=== PATIENT | male | born 1975 | race Caucasian/White ===

== ENCOUNTER 2016-05-27 15:42 | Emergency (ER) | payer MEDICAID ==
--- NOTE | 2016-05-27 16:51 | EDM.PDOC ---
ED HPI GI/ABDOMINAL - General Chief Complaint: Gastrointestinal Problem Stated Complaint: VOMITING BLOOD Time Seen by Provider: 05/27/16 16:43 Source: Reports: Patient, RN notes reviewed History Limitations: Reports: No limitations - History of Present Illness INITIAL COMMENTS - FREE TEXT/NARRATIVE: 40-year-old gentleman presents emergency department today with complaint of vomiting of blood, he had an episode similar to this when he was a child which she relates to bleeding ulcers he has had both upper and lower endoscopy in the past. For this particular meds no warning he denies any illness he had about 6 episodes of bright red blood. At this time he feels asymptomatic - Related Data Allergies/ADRs: Allergies Allergy/AdvReac Type Severity Reaction Status Date / Time No Known Allergies Allergy Verified 05/27/16 15:56 Home Meds: Home Meds Pantoprazole [Protonix] 1 tab PO DAILY 05/27/16 [History] Past Medical History Respiratory History: Reports: Asthma Gastrointestinal History: Reports: GERD, PUD Psychiatric History: Reports: Depression - Past Surgical History HEENT Surgical History: Reports: Myringotomy w tube(s) GI Surgical History: Reports: Colonoscopy, EGD Musculoskeletal Surgical History: Reports: Arthroscopic procedure Social & Family History - Tobacco Use Smoking Status *Q: Never Smoker Years of Tobacco use: 12 Packs/Tins Daily: 1 Second Hand Smoke Exposure: Yes - Alcohol Use Days Per Week of Alcohol Use: 0 - Recreational Drug Use Recreational Drug Use: Yes Drug Use in Last 12 Months: Yes Recreational Drug Type: Reports: Marijuana/Hashish Recreational Drug Use Frequency: Daily Recreational Drug Last Use: 06/11/13 ED ROS GENERAL - Review of Systems Review Of Systems: See Below Constitutional: Reports: no symptoms HEENT: Reports: No symptoms Respiratory: Reports: No Symptoms Cardiovascular: Reports: No symptoms GI/Abdominal: Reports: Hematemesis. Denies: Black stool, Bloody stool : Reports: no symptoms ED EXAM, GI/ABD - Physical Exam Exam: See Below Exam Limited By: No limitations General Appearance: alert, WD/WN, no apparent distress Eyes: bilateral: normal appearance Ears: normal external exam, normal canal, hearing grossly normal, normal TMs Nose: normal inspection, normal mucosa, no blood Throat/Mouth: Normal inspection, Normal lips, Normal teeth, Normal gums, Normal oropharynx, Normal voice, No airway compromise Head: atraumatic, normocephalic Neck: normal inspection, supple, non-tender, full range of motion Respiratory/Chest: no respiratory distress, lungs clear, normal breath sounds, no accessory muscle use Cardiovascular: regular rate, rhythm, no murmur GI/Abdominal: soft, non tender Course - Vital Signs Last Recorded V/S: Last Vital Signs Temp 98.6 F 05/27/16 15:54 Pulse 59 L 05/27/16 17:33 Resp 20 05/27/16 17:33 BP 126/71 05/27/16 17:33 Pulse Ox 96 05/27/16 17:33 - Orders/Labs/Meds Labs: Laboratory Tests 05/27/16 05/27/16 Range/Units 16:50 16:50 WBC 14.3 H (4.5-11.0) K/uL RBC 5.29 (4.30-5.90) M/uL Hgb 15.9 H (12.0-15.0) g/dL Hct 47.1 (40.0-54.0) % MCV 89 (80-98) fL MCH 30 (27-31) pg MCHC 34 (32-36) % Plt Count 256 (150-400) K/uL Neut % (Auto) 75 H (36-66) % Lymph % (Auto) 17 L (24-44) % Bartholomew % (Auto) 8 H (2-6) % Eos % (Auto) 1 L (2-4) % Baso % (Auto) 0 (0-1) % Sodium 143 (140-148) mmol/L Potassium 4.5 (3.6-5.2) mmol/L Chloride 105 (100-108) mmol/L Carbon Dioxide 28 (21-32) mmol/L Anion Gap 9.6 (5.0-14.0) mmol/L BUN 11 (7-18) mg/dL Creatinine 1.1 (0.8-1.3) mg/dL Est Cr Clr Drug Dosing 79.20 mL/min Estimated GFR (MDRD) > 60 (>60) Glucose 96 (74-106) mg/dL Calcium 8.5 (8.5-10.1) mg/dL Departure - Departure Time of Disposition: 18:27 Disposition: Home, Self-Care 01 Condition: good Clinical Impression: Hematemesis/vomiting blood Qualifiers: Nausea presence: without nausea Qualified Code(s): K92.0 - Hematemesis Forms: ED Department Discharge Additional Instructions: The outpatient surgery center will call you for an appointment time for your endoscopy tomorrow morning, please return to the emergency department with development of new symptoms - Assessment/Plan Plan: Assessment Vomiting of blood complicated patient with known history of peptic ulcer disease Plan Discussed case with Dr. Snow from surgery he is currently on Protonix now continue with Protonix the plan is to do an EGD in the morning
[2016-05-27 17:33] VITALS: BP 126/71
== END 2016-05-27 18:50 | disposition home or self-care (01) ==
LOC: JP.ED 15:42
DX: K92.0 Hematemesis (principal); J45.909 Unspecified asthma, uncomplicated; Z79.899 Other long term (current) drug therapy
CPT/HCPCS: 36415; 80048; 85025; 99284

== ENCOUNTER 2016-05-28 06:57 | Day surgery (SDC) | payer MEDICAID ==
[2016-05-28] MEDS ORDERED: Dextrose 5%-Lactated Ringers 1,000 ML IV SCH (08:00)
[2016-05-28] MEDS ORDERED: fentaNYL 100 MCG/2 ML SDV ONE (08:13)
[2016-05-28] MEDS ORDERED: Midazolam 1 MG/ML 2 ML SDV ONE (08:13)
[2016-05-28] MEDS ORDERED: Propofol 200 MG/20 ML SDV ONE (08:13)
[2016-05-28] MEDS ORDERED: Glycopyrrolate 0.2 MG/ML 2 ML SYRINGE IVPUSH ONE (08:30)
[2016-05-28 09:45] VITALS: BP 130/88
--- NOTE | 2016-05-30 08:14 | OR ---
DATE OF PROCEDURE: 05/28/2016 PREOPERATIVE DIAGNOSIS: Hematemesis. POSTOPERATIVE DIAGNOSES: 1. Hematemesis associated with active ulcerated gastroesophageal reflux disease. 2. A small amount of gastric bezoar, associated with mild antral gastritis. PROCEDURES: Esophagogastroduodenoscopy with: A. Biopsies of antrum for CLOtest. B. Biopsies of the esophagogastric junction for histologic evaluation ANESTHESIA: IV sedation. INDICATION FOR PROCEDURE: This is a 40-year-old status post an episode of hematemesis, who was seen in the emergency room yesterday. He has not had further problems since the initial episodes of hematemesis yesterday. Patient presently on Protonix 40 mg a day, is being used long-term for gastroesophageal reflux symptoms. Potential risks including bleeding and perforation were discussed, and the patient wishes to proceed with the upper GI endoscopy. DETAILS OF PROCEDURE: The patient was taken to the operating room and placed in a left lateral decubitus position. IV sedation was administered, after which the upper GI endoscope was passed orally through the length of the esophagus and the stomach with retroflexion view of the fundus, thereafter through the pyloric channel into the proximal duodenum. The findings included normal upper esophagus and esophageal body. At the EG junction, the patient had a roughly 4 cm hiatal hernia. There were active gastroesophageal reflux findings at that level with there being a small amount of blood present on initial view. Upon passing the scope, I passed the area with minimal abrasion then quite a bit more blood was then present. There was no stricturing or gross evidence of neoplasia. Within the stomach, there was a small amount of retained fluid indicative of some possible component of relatively poor gastric emptying. There was some mild redness in the prepyloric area. Otherwise, the remainder of the stomach and duodenal exams were unremarkable. At this point, biopsies were obtained from the antrum and sent for CLOtest for H. pylori. Multiple biopsies were obtained from the esophagogastric junction and sent for histologic evaluation. Minimal bleeding from the biopsy sites was seen and the procedure concluded. The patient was taken to the recovery room in satisfactory condition. At this point, the patient would appear to be failing medical management for gastric reflux disease. We will continue the present medical management and see him back next week for recheck to discuss treatment options. Niall Snow MD /[id number]
== END 2016-05-28 09:46 | disposition home or self-care (01) ==
LOC: JP.SDS 06:57
PROVIDERS: ATTEND Surgery
DX: K22.10 Ulcer of esophagus without bleeding (principal); J45.909 Unspecified asthma, uncomplicated; K21.9 Gastro-esophageal reflux disease without esophagitis; E66.9 Obesity, unspecified; Z91.040 Latex allergy status
CPT/HCPCS: 43239; 87081; 88305; 88312; J2250; J2704; J3010

== ENCOUNTER 2016-06-12 05:50 | Inpatient (IN) | payer MEDICAID ==
[2016-06-12] MEDS ORDERED: Dextrose 5%-Lactated Ringers 1,000 ML IV SCH (07:15)
[2016-06-12] MEDS ORDERED: Naloxone 0.4 MG/ML SDV IVPUSH PRN (07:25)
[2016-06-12] MEDS ORDERED: HYDROmorphone/Normal Saline 15 MG/30 ML PCA IV PRN (07:25)
[2016-06-12] MEDS ORDERED: Rocuronium 50 MG/5 ML Vial ONE (07:39)
[2016-06-12] MEDS ORDERED: fentaNYL 250 MCG/5 ML SDV ONE ×3 (07:39→09:09)
[2016-06-12] MEDS ORDERED: Dexamethasone 4 MG/ML SDV ONE (07:39)
[2016-06-12] MEDS ORDERED: Ondansetron 4 MG/2 ML SDV ONE (07:39)
[2016-06-12] MEDS ORDERED: Succinylcholine/Normal Saline 200 MG/10 ML Syringe ONE (07:39)
[2016-06-12] MEDS ORDERED: Propofol 200 MG/20 ML SDV ONE (07:39)
[2016-06-12] MEDS ORDERED: Neostigmine Methylsulfate 1 MG/ML 5 ML Syringe ONE (07:39)
[2016-06-12] MEDS ORDERED: ceFAZolin 2 GM in Premix Bag 1 BAG IV ONE (08:15)
[2016-06-12] MEDS ORDERED: Ondansetron 4 MG/2 ML SDV IVPUSH PRN (10:41)
[2016-06-12] MEDS ORDERED: Naloxone 0.4 MG/ML SDV IV PRN (10:41)
[2016-06-12] MEDS: Dextrose 5%-Lactated Ringers 1,000 ML IV SCH ×2 (11:26→18:55)
[2016-06-12] MEDS: Metoclopramide 10 MG/2 ML SDV IVPUSH SCH ×3 (11:33→23:32)
[2016-06-12] MEDS: Pantoprazole 40 MG Vial IV SCH (11:33)
[2016-06-12] MEDS: Citalopram 20 MG Tab PO SCH (13:04)
[2016-06-12] MEDS: ceFAZolin 2 GM in Sodium Chloride 0.9% 50 ML IV SCH ×2 (15:24→23:33)
[2016-06-13] MEDS: Dextrose 5%-Lactated Ringers 1,000 ML IV SCH ×2 (02:11→08:55)
[2016-06-13] MEDS: Metoclopramide 10 MG/2 ML SDV IVPUSH SCH ×4 (04:22→23:05)
[2016-06-13] MEDS ORDERED: Ondansetron 4 MG Tab.DIS PO PRN (08:00)
--- NOTE | 2016-06-13 08:07 | PN ---
DATE OF SERVICE: 06/13/2016 SUBJECTIVE: Homer is postop day #1. His vital signs have been stable. His activity was good. He is tolerating a clear liquid diet. He has no other concerns or questions. OBJECTIVE: GENERAL: Homer Mar is a 40-year-old male. VITAL SIGNS: TPR is 96.7, 63, 16, blood pressure 122/81. HEENT: Negative. NECK: Supple. HEART: Regular rate and rhythm. LUNGS: Clear. ABDOMEN: Dressings dry and intact. Abdominal binder is on. EXTREMITIES: Without peripheral edema. ASSESSMENT: Laparoscopic Tc fundoplication with repair of paraesophageal diaphragmatic hernia with mesh, excision of mediastinal lipoma for paraesophageal diaphragmatic hernia with gastroesophageal reflux disease refractory to medical management and mediastinal lipoma. Date of surgery, 06/12/2016. PLAN: 1. Full-liquid diet. 2. Discontinue [employer] SECONDARY PROFESSIONAL and continuous pulse ox. 3. Dietary consult. 4. Dilaudid 2 mg 1 to 2 every 4 hours p.r.n. pain. 5. Dressing off. May shower. 6. Zofran ODT 4 mg q.4 hours p.r.n. nausea. 7. Decrease IV rate to 100 mL per hour. 8. Will evaluate p.r.n. or in a.m. Jenise Ashley PA-C /[id number]
[2016-06-13] MEDS: Citalopram 20 MG Tab PO SCH (08:55)
[2016-06-13] MEDS: Pantoprazole 40 MG Vial IV SCH (10:35)
[2016-06-13] MEDS: HYDROmorphone 2 MG Tab PO PRN ×2 (12:08→16:07)
[2016-06-14] MEDS: HYDROmorphone 2 MG Tab PO PRN ×3 (00:14→09:03)
[2016-06-14] MEDS: Metoclopramide 10 MG/2 ML SDV IVPUSH SCH (05:04)
[2016-06-14] MEDS: Dextrose 5%-Lactated Ringers 1,000 ML IV SCH (05:05)
[2016-06-14] MEDS ORDERED: Pantoprazole 40 MG Tab.CR PO SCH (07:30)
[2016-06-14 07:47] VITALS: BP 130/73
[2016-06-14] MEDS: Citalopram 20 MG Tab PO SCH (09:03)
--- NOTE | 2016-06-16 10:49 | DISCH ---
FINAL DIAGNOSES: 1. Gastroesophageal reflux disease refractory to medical management associated with large paraesophageal diaphragmatic hernia. 2. Mediastinal lipoma. 3. History of depression. 4. History of dyslipidemia. 5. Irritable bowel syndrome. OPERATIVE PROCEDURE: Done on 06/12/2016, laparoscopic Tc fundoplication with repair of paraesophageal diaphragmatic hernia with mesh and excision of mediastinal lipoma. SUMMARY: This is a 40-year-old male presenting with gastroesophageal reflux disease, which has become refractory to medical management. After preoperative evaluation and discussion, he wished to proceed with a Tc fundoplication. This was done on the day of admission. Due to the tenuousness of his crural repair, Phasix mesh was used to augment that. Postoperatively, he has done well. He did have one episode of esophageal spasm last night, but is otherwise tolerating a liquid diet well, will be staying on a full liquid diet for 2 weeks. FOLLOWUP: Followup with Dr. Snow will be at [facility] ([facility] on 06/25/2016. DISCHARGE MEDICATIONS: Include Dilaudid 2 to 4 mg p.o. q.4 hours p.r.n. #30, and he will be continuing the citalopram, and he will be instructed to continue the Protonix for one week and then discontinue that.
--- NOTE | 2016-06-16 11:25 | OR ---
DATE OF PROCEDURE: 06/12/2016 PREOPERATIVE DIAGNOSIS: Gastroesophageal reflux disease refractory to medical management. POSTOPERATIVE DIAGNOSES: 1. Gastroesophageal reflux disease refractory to medical management associated with paraesophageal diaphragmatic hernia. 2. Mediastinal lipoma. OPERATIVE PROCEDURE: Diagnostic laparoscopy with: 1. Laparoscopic Tc fundoplication with repair of paraesophageal diaphragmatic hernia with mesh (38831). 2. Excision of mediastinal lipoma ([id number]). ANESTHESIA: General. LOG PEELER: Jenise Ashley PA-C. INDICATIONS FOR PROCEDURE: This is a 40-year-old male with ongoing gastroesophageal reflux disease that has become refractory to medical management. After preoperative evaluation, he wished to proceed with a Tc fundoplication. Potential risks including bleeding, infection, injury to underlying viscera, problems with the fundoplication, such as dysphagia, gas-bloat syndrome, disorders of gastric emptying rate, as well as possibility of incomplete relief of reflux symptoms were all gone over, and the patient wishes to proceed. DETAILS OF PROCEDURE: The patient was taken to the operating room and placed in the supine position. After general endotracheal anesthesia was induced, he was converted to a lithotomy position. Simpson catheter was inserted and the abdomen prepped and draped. At 15 cm inferior and 5 cm left of xiphoid process, a transverse incision was made and the peritoneal cavity entered under direct vision with an Optiview trocar, inflated to 15 mmHg pressure with CO2. Laparoscope was reinserted. No underlying trocar insertion site injuries were seen. Following this, 4 additional trocars were placed across the upper mid abdomen, and general exploration was undertaken. Upon elevation of the liver, the patient was noted to have a fairly large hiatal hernia. This had a major paraesophageal component to it with prolapse of the gastric fundus, as well as some omentum, in the plane anterior to the course of the esophagus. The diaphragmatic hernia was reduced at this point and, at the esophagogastric junction, the peritoneum incised on the right side initially, then anteriorly, and then on the left side. This allowed dissection of the esophagus away from the crura on each side, and retrocrural window was then established. With Jessica drain providing traction, the remaining soft tissue attachments to the distal esophagus were freed up such that, at the conclusion of that phase, the patient had a 5 cm intraabdominal esophageal length without traction on the Jessica drain. The patient was noted to have a mediastinal lipoma located posterior to the esophagus, and this was excised as part of the procedure to facilitate more adequate fundoplication, as well as histologic confirmation. At this point, the crural repair was accomplished with some #0 Ethibond sutures, reinforced with PTFE pledgets. The crura were quite widened, and this was felt to be a case where there would be a fairly high risk of recurrence of the diaphragmatic hernia over time. Given this, Phasix mesh was cut such that it would lie over the crural repair and then along the side of the esophagus on each side. Once this was in place, this was positioned with some titanium tacking screws. At this point, the omentum was divided away from the greater curvature of the stomach, beginning at the mid greater curvature, with Harmonic scalpel. This continued upward through the short gastric vessels, including the highest and posterior short gastric vessels. This then allowed adequate mobilization of the fundus. The latter was retrieved through the retroesophageal window. Anesthesia then passed a guidewire orally through the esophagus and into the stomach, and over this a 54-[place] Citizen Savary dilator was placed. A 2 cm 3-stitch fundoplication with #0 Ethibond sutures reinforced with PTFE pledgets was then undertaken. Each of the sutures included bites of the underlying esophagus to help fix it in position, and finally then, on each side of the fundoplication, it was attached to the overlying diaphragm with the same stitch/pledget combination. At that point, the dilator and guidewire were removed. The patient was noted to have a satisfactorily loose fundoplication, and no other problems were noted. At this point, the trocars were removed and the peritoneal cavity deflated. The fascia of the 12 mm camera port was closed with 0 Vicryl stitch and the skin at each incision with 4-0 Vicryl skin stitch. Physician media center assistant, Jenise Ashley, played an essential role in assisting in this case, helping to position the patient, retract structures as needed, as well suturing and cutting sutures when indicated. Her presence improved the patient safety and decreased operative time. Niall Snow MD /[id number]
== END 2016-06-14 09:25 | disposition home or self-care (01) | DRG 328 ==
LOC: JP.SDSSCHI 05:50 → JP.SDS 05:50 → EDSTATUS 09:00 → JP.2SS 10:15
PROVIDERS: ADMIT Surgery; ATTEND Surgery
PROC: [UNRECOGNIZED PROCEDURE] (principal; 2016-06-12)
PROC: 0DV40ZZ Restriction of Esophagogastric Junction, Open Approach (ICD-10-PCS; principal; 2016-06-12)
PROC: [UNRECOGNIZED PROCEDURE] (2016-06-12)
DX: K21.9 Gastro-esophageal reflux disease without esophagitis (principal); K44.9 Diaphragmatic hernia without obstruction or gangrene; E88.2 Lipomatosis, not elsewhere classified; F32.9 Major depressive disorder, single episode, unspecified; E78.5 Hyperlipidemia, unspecified; K58.9 Irritable bowel syndrome, unspecified
CPT/HCPCS: 88304; 94762; A9270-GY; C1781; C9113; J0690; J1100; J1170; J2405; J2704; J2765; J3010; J7042; J7050

== ENCOUNTER 2017-03-19 07:34 | Day surgery (SDC) | payer MEDICAID ==
[2017-03-19] MEDS ORDERED: Dextrose 5%-Lactated Ringers 1,000 ML IV SCH (08:45)
[2017-03-19] MEDS ORDERED: fentaNYL 100 MCG/2 ML SDV ONE (09:26)
[2017-03-19] MEDS ORDERED: Midazolam 1 MG/ML 2 ML SDV ONE (09:26)
[2017-03-19] MEDS ORDERED: Propofol 200 MG/20 ML SDV ONE (09:29)
[2017-03-19] MEDS ORDERED: Glycopyrrolate 0.2 MG/ML 2 ML SDV IVPUSH ONE (09:45)
[2017-03-19 10:55] VITALS: BP 139/75
--- NOTE | 2017-03-19 15:18 | OR ---
DATE OF PROCEDURE: 03/19/2017 PREOPERATIVE DIAGNOSIS: Dysphagia, status post Tc fundoplication. POSTOPERATIVE DIAGNOSES: Dysphagia, status post Tc fundoplication, associated with: 1. Normal-appearing esophagus, EG junction, and fundoplication. 2. Large gastric bezoar. OPERATIVE PROCEDURES: Esophagogastroduodenoscopy with: 1. Biopsies of antrum for CLOtest. 2. Esophageal dilation over a guidewire. ANESTHESIA: IV sedation. INDICATION FOR PROCEDURE: This is a 41-year-old status post Tc fundoplication this past May. He has had some persistent problems with dysphagia. Presently, this patient is to undergo an upper endoscopy with biopsies and/or dilation as indicated. Potential risks including bleeding and perforation were discussed, and the patient wishes to proceed. DETAILS OF PROCEDURE: The patient was taken to the operating room and placed in a left lateral decubitus position. IV sedation was administered, after which the upper GI endoscope was passed orally through the length of the esophagus and into the stomach with retroflexion view of the fundus, and thereafter through the pyloric channel and into the proximal duodenum. Findings included normal-appearing hypopharynx, larynx, and upper esophageal sphincter. Esophageal body was likewise unremarkable. No dilation was seen. At the EG junction, the patient had an intact Tc effect over the distal esophagus and EG junction area. There was no inflammation, and the esophagus was easily opened up at that level, i.e. it was not by any means overly tightened. As one entered the stomach, the patient was noted to have a large gastric bezoar consisting of old ingested vegetable matter predominantly. The remainder of the stomach, however, was unremarkable. There was no stenosis at the pyloric sphincter and the duodenum at the junction of the third and fourth portions was unremarkable. At this point, biopsies were obtained from the antrum to assess the patient's H. pylori status. Following this, a guidewire was then passed and the gastroscope removed. The patient's esophagus was then dilated with a 54-[place] Savary dilator and it was held in position for 1 minute, after which the dilator and wire were removed. The patient tolerated the procedure well. The patient appeared to be most likely having some esophageal spasm. I am going to put him on Levsin 0.125 mg q.i.d. With regard to the bezoar, I think that rather than starting him on a prokinetic agent initially, at this point, we will have Dietary see him regarding anti-bezoar diet, and perhaps, perform a followup endoscopy in 2 to 3 months to see if that is helpful. We will see him back in 1 month for recheck. Niall Snow MD /[id number]
== END 2017-03-19 10:57 | disposition home or self-care (01) ==
LOC: JP.SDS 07:34
PROVIDERS: ATTEND Surgery
DX: T18.2XXA Foreign body in stomach, initial encounter (principal); R13.10 Dysphagia, unspecified; F32.9 Major depressive disorder, single episode, unspecified; K21.9 Gastro-esophageal reflux disease without esophagitis; F41.9 Anxiety disorder, unspecified; X58.XXXA Exposure to other specified factors, initial encounter; F17.290 Nicotine dependence, other tobacco product, uncomplicated
CPT/HCPCS: 43239; 43248; 87081; J2250; J2704; J3010; J7042; J3490

== ENCOUNTER 2022-06-18 06:43 | Day surgery (SDC) | payer MEDICAID, OTHER ==
[2022-06-18] MEDS ORDERED: fentaNYL 100 MCG/2 ML SDV ONE (07:18)
[2022-06-18] MEDS ORDERED: Propofol 200 MG/20 ML SDV ONE ×2 (07:18→07:58)
[2022-06-18] MEDS ORDERED: Midazolam 1 MG/ML 2 ML SDV ONE (07:18)
[2022-06-18] MEDS ORDERED: Lactated Ringers 1,000 ML IV SCH (07:30)
[2022-06-18 09:12] VITALS: BP 126/85; PULSE 61
== END 2022-06-18 09:13 | disposition home or self-care (01) ==
LOC: JP.SDS 06:43
PROVIDERS: ATTEND Student in an Organized Health Care Education/Training Program
DX: K21.00 Gastro-esophageal reflux disease with esophagitis, without bleeding (principal); K29.50 Unspecified chronic gastritis without bleeding; K25.9 Gastric ulcer, unspecified as acute or chronic, without hemorrhage or perforation; K58.0 Irritable bowel syndrome with diarrhea; Z91.040 Latex allergy status
CPT/HCPCS: 43239; 45380; 88305; J2250; J2704; J3010; J7120